=== PATIENT | male | born 1950 | race Caucasian/White ===

== ENCOUNTER 2020-06-11 22:12 | Emergency (ER) | payer OTHER ==
[~2020-06-11] VITALS: Ht 170.2 cm; Wt 104.3 kg
[~2020-06-11 22:12] MED LIST: ACYCLOVIR400 MG PO; DEXAMETHASONE4 MG PO; GLIPIZIDE ER10 MG PO; IBUPROFEN600 MG PO; LANTUS100 UNITS/ SUB-Q; LEVOTHYROXINE75 MCG PO; LIPITOR20 MG PO; LISINOPRIL20 MG PO; MAPAP325 MG PO; METAMUCIL POWD822 G2 PO; METFORMIN HCL500 MG PO; ONDANSETRON ODT8 MG PO; PERCOCET 7.5-31 EACH PO; VITAMIN D32000 UNI2 PO; ZESTORETIC 20-1 EACH PO
[2020-06-11] MEDS ORDERED: ACETAMINOPHEN-1 EAC1 PO (22:46)
== END 2020-06-11 23:19 | disposition home or self-care (01) ==
LOC: ED 22:12
DX: S05.01XA Injury of conjunctiva and corneal abrasion without foreign body, right eye, initial encounter (principal); W22.8XXA Striking against or struck by other objects, initial encounter; I10 Essential (primary) hypertension; E11.9 Type 2 diabetes mellitus without complications; E78.5 Hyperlipidemia, unspecified; Z91.030 Bee allergy status; Z79.899 Other long term (current) drug therapy; Z79.4 Long term (current) use of insulin
CPT/HCPCS: 99283

== ENCOUNTER 2024-02-26 13:41 | Emergency (ER) | payer MEDICARE ==
[~2024-02-26] VITALS: Ht 170.2 cm; Wt 99.0 kg
[~2024-02-26 13:41] MED LIST changes: +ACETAMINOPHEN-1 EAC1 PO
[2024-02-26] MEDS ORDERED: METOPROLOL SUCC25 MG PO (13:56)
[2024-02-26] MEDS ORDERED: CLOPIDOGREL75 MG PO (13:57)
[2024-02-26] MEDS ORDERED: JARDIANCE10 MG PO (13:57)
[2024-02-26] MEDS ORDERED: ENTRESTO 24 MG1 EACH PO (13:57)
[2024-02-26] MEDS ORDERED: POTASSIUM CHLO10 MEQ PO (13:57)
[2024-02-26 14:08] LABS: BASOPHILS 2.1 % (0-2); EOSINOPHILS 1.9 % (0-6); HEMATOCRIT 47.3 % (35.0-50.0); HEMOGLOBIN 15.5 g/dL (12.0-18.0); LYMPHOCYTES 16.9 % (24-44); MCH 29.3 (27-36); MCHC 32.7 g/dl (30-36); MCV 89.6 fl (81-99); MONOCYTES 9.8 % (0-12); NEUTROPHILS 69.3 % (39-80); PLATELET COUNT 216 K/uL (140-440); RBC 5.28 M/ul (4.3-5.7); RDW 14.5 (10.5-15.0)
[2024-02-26] MEDS ORDERED: dilTIAZem HCL 25 MG/5 ML VIAL IV ONE ×2 (14:15→16:30)
[2024-02-26] MEDS ORDERED: ELIQUIS5 MG PO (14:22)
[2024-02-26 14:52] LABS: ALBUMIN/GLOBULIN RATIO 1.25 (1.1-2.4); ANION GAP 17.2 (7-21); BILIRUBIN, TOTAL 0.9 ng/dL (0.2-1.0); BUN/CREATININE RATIO 11.03 (6.0-28.6); CALCIUM 9.8 mg/dL (8.5-10.1); CREATININE, SERUM 1.45 mg/dL (0.70-1.30); MAGNESIUM 1.2 mg/dL (1.8-2.4); POTASSIUM 4.2 mmol/L (3.5-5.1); PROTEIN, TOTAL 7.2 g/dL (6.4-8.2)
[2024-02-26] MEDS ORDERED: SODIUM CHLORIDE 0.9% 1,000 ML IV PRN (16:30)
[2024-02-26 18:15] VITALS: BP 119/73
--- NOTE | 2024-02-29 21:30 | EKG ---
[facility] [address] [facility] [place] [address] Signed Atrial fibrillation with rapid ventricular response with premature ventricular or aberrantly conducted complexes Left bundle branch block Abnormal ECG When compared with ECG of 22-SEP-2016 15:04, Atrial fibrillation has replaced Sinus rhythm Vent. rate has increased BY 103 BPM Left bundle branch block is now present Confirmed by Alek Smiley MD ([id number]) on 02/29/2024 9:30:21 PM Electronically Signed By: ALEK SMILEY DO [id number] PATIENT NAME: KUNAL ALMAZAN Electrocardiogram DATE OF : 46 PHYSICIAN: ALEK SMILEY DO REPORT #: [id number] REPORT IS CONFIDENTIAL AND NOT TO BE RELEASED WITHOUT AUTHORIZATION
== END 2024-02-26 18:16 | disposition home or self-care (01) ==
LOC: ED 13:41
PROVIDERS: Emergency Medicine
DX: I48.91 Unspecified atrial fibrillation (principal); I10 Essential (primary) hypertension; E11.9 Type 2 diabetes mellitus without complications; E78.00 Pure hypercholesterolemia, unspecified; Z91.038 Other insect allergy status; Z79.84 Long term (current) use of oral hypoglycemic drugs; Z79.01 Long term (current) use of anticoagulants; Z79.899 Other long term (current) drug therapy
CPT/HCPCS: 36415; 71045; 80053; 83735; 83880; 84484; 85025; 85730; 93005; 93010; 96374; 96376; 99285-25

== ENCOUNTER 2024-07-22 05:52 | Day surgery (SDC) | payer MEDICARE ==
[2024-07-17 14:17] VITALS: BP 126/69
--- NOTE | 2024-07-17 14:38 | NUR ---
SPOKE WITH DR LINCOLN REGARDING ANTICOAG MEDS. NEEDS TO STOP ELIQUIS 3 DAYS BEFORE PROCEDURE. OK TO CONTINUE BABY ASPIRIN. PT AWARE.
[~2024-07-22] VITALS: Ht 170.2 cm; Wt 94.3 kg
[~2024-07-22 05:52] MED LIST changes: +ADULT LOW DOSE81 MG PO; +AMIODARONE HCL400 MG PO; +BISOPROLOL FUMA10 MG PO; +CLOPIDOGREL75 MG PO; +ELIQUIS5 MG PO; +ENTRESTO 24 MG1 EACH PO; +JARDIANCE10 MG PO; +LACTATED RINGER'S 1,000 ML IV SCH; +METAMUCIL660 GM PO; +METOPROLOL SUCC25 MG PO; +POTASSIUM CHLO10 MEQ PO; +SOAANZ40 MG PO
[2024-07-22 06:18] VITALS: BP 134/68
[2024-07-22] MEDS ORDERED: ETOMIDATE 40 MG/20 ML VIAL ONE (06:21)
[2024-07-22] MEDS ORDERED: fentaNYL citrate 100 MCG/2 ML VIAL ONE (06:35)
[2024-07-22] MEDS ORDERED: DEXAMETHASONE SOD PHOS 4 MG/ML VIAL ONE (06:35)
[2024-07-22] MEDS ORDERED: KETOROLAC TROMETHAMINE 30 MG/ML VIAL ONE (06:35)
[2024-07-22] MEDS ORDERED: ondansetron HCL 4 MG/2 ML VIAL ONE (06:35)
[2024-07-22] MEDS ORDERED: LACTATED RINGER'S 1,000 ML IV ONE (06:35)
[2024-07-22] MEDS ORDERED: FAMOTIDINE 20 MG/ 2 ML VIAL ONE (06:35)
[2024-07-22] MEDS ORDERED: MIDAZOLAM HCL 2 MG/2 ML VIAL ONE (06:35)
[2024-07-22] MEDS ORDERED: METOCLOPRAMIDE HCL 10 MG/2 ML SDV ONE (06:35)
[2024-07-22] MEDS ORDERED: propofoL 200 MG/20 ML VIAL ONE (06:36)
[2024-07-22] MEDS ORDERED: IBLOOD GLUCOSE TEST STRIP 1 EA TEST VI PRN ×2 (07:00→08:00)
[2024-07-22] MEDS ORDERED: CEFAZOLIN SODIUM 2 GM/20 ML SYR IV SCH (07:00)
[2024-07-22] MEDS ORDERED: LIDOCAINE HCL 1% 5 ML SDV INJ ONE (07:00)
[2024-07-22] MEDS ORDERED: TRAMADOL HCL 50 MG TAB PO PRN (07:30)
[2024-07-22] MEDS ORDERED: ondansetron HCL 4 MG/2 ML VIAL IV PRN ×2 (07:30→08:00)
[2024-07-22] MEDS ORDERED: MORPHINE SULFATE 4 MG/ML VIAL IV PRN (07:30)
--- NOTE | 2024-07-22 07:38 | NUR ---
PT NOT AVAILABLE FOR VISIT. PROVIDED PRAYER.
[2024-07-22] MEDS ORDERED: DIGOXIN 500 MCG/2 ML AMP ONE (07:52)
[2024-07-22] MEDS ORDERED: METOCLOPRAMIDE HCL 10 MG/2 ML SDV IV PRN (08:00)
[2024-07-22] MEDS ORDERED: fentaNYL citrate 50 MCG/ML SDV IV PRN (08:00)
[2024-07-22] MEDS ORDERED: PROCHLORPERAZINE EDISYLATE 10 MG/2 ML VIAL IV PRN (08:00)
[2024-07-22] MEDS ORDERED: NALOXONE HCL 0.4 MG SYR IV PRN (08:00)
[2024-07-22] MEDS ORDERED: droPERidol 5 MG/2 ML VIAL IV PRN (08:00)
[2024-07-22 08:56] VITALS: BP 123/62
--- NOTE | 2024-07-22 08:58 | NUR ---
07/22/24 0858 Jazmine Cowart [id number] PT ARRIVED IN PACU SLEEPY WITH NO C/O'S. 0820 SITTING UP IN BED SIPPING ON WATER. 0830 UP TO BATHROOM. VOIDED PINK COLORED URINE WITH SMALL RED CLOTS IN URINE. AWARE WITH NO NEW ORDERS. 0845 DRESSED. DC INSTRUCTIONS GIVEN. ALL QUESTIONS ANSWERED. 0850 LEFT VIA W/C.
[2024-07-22] MEDS ORDERED: CEFTRIAXONE SODIUM 1 GM in SODIUM CHLORIDE 0.9% 100 ML IV SCH (09:00)
== END 2024-07-22 08:50 | disposition home or self-care (01) ==
LOC: OPS 05:52 → DS 05:52 → OPS 07:30 → DS 07:30 → OPS 08:50 → DS 13:20
PROVIDERS: ATTEND Urology
PROC: 0TBB8ZZ Excision of Bladder, Via Natural or Artificial Opening Endoscopic (ICD-10-PCS; principal; 2024-07-22 07:30)
DX: N32.9 Bladder disorder, unspecified (principal); I13.10 Hypertensive heart and chronic kidney disease without heart failure, with stage 1 through stage 4 chronic kidney disease, or unspecified chronic kidney disease; E11.22 Type 2 diabetes mellitus with diabetic chronic kidney disease; N18.2 Chronic kidney disease, stage 2 (mild); E07.9 Disorder of thyroid, unspecified; E78.00 Pure hypercholesterolemia, unspecified; I48.91 Unspecified atrial fibrillation; I25.10 Atherosclerotic heart disease of native coronary artery without angina pectoris; I49.5 Sick sinus syndrome; F17.220 Nicotine dependence, chewing tobacco, uncomplicated; Z85.72 Personal history of non-Hodgkin lymphomas; Z79.01 Long term (current) use of anticoagulants; Z79.02 Long term (current) use of antithrombotics/antiplatelets; Z79.82 Long term (current) use of aspirin; Z79.84 Long term (current) use of oral hypoglycemic drugs; Z79.890 Hormone replacement therapy; Z79.899 Other long term (current) drug therapy; Z95.0 Presence of cardiac pacemaker; Z95.5 Presence of coronary angioplasty implant and graft; Z96.649 Presence of unspecified artificial hip joint
CPT/HCPCS: 00910; 36415; 83880; J0690; J1100; J1160; J1885; J2250; J2405; J2704; J2765; J3010; J7121